=== PATIENT | male | born 1950 | race Caucasian/White ===

== ENCOUNTER 2018-01-23 14:42 | Outpatient (CLI) | payer MEDICARE ==
--- NOTE | 2018-01-23 15:53 | RAD ---
LUMBAR SPINE TWO VIEWS: HISTORY: A 67-year-old male with a history of lumbar stenosis and low back pain. FINDINGS: Postoperative changes are noted posteriorly at L3-L4 and at L4-L5. Extensive multilevel disk osteoph ytosis. Significant facet arthrosis. No evidence for acute fracture or significant malalignment. IMPRESSION: 1. Extensive spondylosis. 2. Dorsal postoperative changes at L3-L4 and L4-L5. POS: [facility]
== END 2018-01-23 14:43 | disposition home or self-care (01) ==
LOC: TBSIIMAG 14:42
PROVIDERS: ATTEND Surgery
DX: M48.061 Spinal stenosis, lumbar region without neurogenic claudication (principal); M47.896 Other spondylosis, lumbar region; Z98.890 Other specified postprocedural states
CPT/HCPCS: 72100

== ENCOUNTER 2018-03-09 06:18 | Inpatient (IN) | payer MEDICARE ==
[2018-03-08 13:08] VITALS: BMI 33.0
[2018-03-09] MEDS ORDERED: Thrombin 5000 UNITS/5 ML VIAL ONE (06:37)
[2018-03-09] MEDS ORDERED: Fentanyl 100 MCG/2 ML VIAL ONE ×2 (06:37→11:04)
[2018-03-09] MEDS ORDERED: Bacitracin Zinc Ointment 30 gm TUBE ONE (06:37)
[2018-03-09] MEDS ORDERED: Sodium Chloride 0.9% 10 ML ONE (06:37)
[2018-03-09 07:07] LABS: #Basophils 0.1 thou/uL (0.0-0.2); #Eosinphils 0.4 thou/uL (0.0-0.7); #Lymphocytes 1.8 thou/uL (1.20-3.40); #Monocytes 0.8 thou/uL (0.11-0.59); #Neutrophils 6.3 thou/uL (1.40-6.50); %Basophils 0.7 % (0.0-1.0); %Eosinophils 4.3 % (0.0-10.0); %Lymphocytes 19.3 % (21.0-51.0); %Monocytes 8.5 % (0.0-10.0); %Neutrophils 67.3 % (42.0-75.0); Hemoglobin 13.9 g/dL (14.0-18.0); Mean Corpuscular HGB CONC 33.3 g/dL (32.0-36.0); Mean Corpuscular Hemoglobin 29.7 pg (27.0-31.0); Mean Platelet Volume 7.8 fL (7.4-10.4); Platelet Count 176 thou/uL (130-400); RBC Distribution Width 12.2 % (11.5-14.5); Red Blood Cell (RBC) Count 4.67 mill/uL (4.70-6.10); White Blood Cell (WBC) Count 9.3 thou/uL (4.8-10.8)
[2018-03-09 07:28] LABS: Anion Gap 13 mmol/L (10-20); BUN (Urea Nitrogen) 39 mg/dL (8.4-25.7); Calc. Creatinine Clearance 98 mL/min (70-130); Calcium 9.3 mg/dL (7.8-10.44); Carbon Dioxide 17 mmol/L (23-31); Chloride 114 mmol/L (98-107); Estimated GFR-MDRD 64; Glucose 135 mg/dL (80-115); Potassium 4.4 mmol/L (3.5-5.1); Sodium 140 mmol/L (136-145)
[2018-03-09 07:29] LABS: PTT 30.8 SEC (22.9-36.1)
[2018-03-09] MEDS ORDERED: CEFAZOLIN/Water 2 GM/20 ML SYRINGE ONE (07:33)
[2018-03-09] MEDS ORDERED: Midazolam HCl 2 mg/2 ml Vial ONE (07:36)
[2018-03-09] MEDS ORDERED: HYDROmorphone 0.5 MG/0.5 ML SYRINGE ONE (10:38)
[2018-03-09] MEDS ORDERED: Acetaminophen/Codeine 30-300mg Tablet PO PRN (10:58)
[2018-03-09] MEDS ORDERED: Promethazine HCl 25 MG/ML VIAL IM PRN (10:58)
[2018-03-09] MEDS ORDERED: Fleet Enema 133 ML BOT PR PRN (10:58)
[2018-03-09] MEDS ORDERED: Acetaminophen 325 MG TAB PO PRN (10:58)
[2018-03-09] MEDS ORDERED: Milk Of Magnesia 30 ML UDCUP PO PRN (10:58)
[2018-03-09] MEDS ORDERED: Bisacodyl 10 MG SUPP PR PRN (10:58)
[2018-03-09] MEDS ORDERED: Mag-Al 1200 mg/1200 mg/30 ML UDCUP PO PRN (10:58)
--- NOTE | 2018-03-09 11:07 | OP ---
SURGEON: Jean Up M.D. SHARE HOLDER: Daljit Guzman PA-C. OR: 11. WOUND: Type 1 wound. PREPROCEDURE DIAGNOSES: Multilevel lumbar stenosis with history of L3-L4, L4-L5 X-STOP device placem ent in the past. POSTPROCEDURE DIAGNOSES: Multilevel lumbar stenosis with history of L3-L4, L4-L5 X-STOP device place ment in the past. PROCEDURES PERFORMED: 1. L2-L3, L3-L4, L4-L5 laminectomies, partial facetectomies and foraminotomies of the L2, L3, L4, L5 nerve roots bilaterally. 2. Removal of L3-L4 X-STOP device. 3. Removal of L4-L5 X-STOP device. DESCRIPTION OF PROCEDURE: After informed consent was obtained from the patient, the patient brought to OR 11. Proper patient pause and identification was carried out. He was placed in excellent gener al endotracheal anesthesia and positioned prone on the OR table. All appropriate points were padded. We identified the L2, L3, L4, L5 dorsal spines in the prior incision. This region was sterilely cl eansed, prepared, and draped. Proper patient pause and identification was carried out. The wound wa s then opened with a combination of sharp, monopolar and blunt dissection. The L2, L3, L4, L5 dorsal spines and lamina were exposed. The X-STOP devices were identified at L3-L4, L4-L5, and these were removed each separately. We had to work through scar tissue as expected in this region and then we p roceeded to expose the L2, L3, L4, L5 dorsal spines, lamina and portions of the facet capsules. Loca lization film confirmed our area of interest. We then performed L2, L3, L4, L5 laminectomies, partia l facetectomies and foraminotomies over the L2, L3, L4, L5 nerve roots and common dural tube. Hemost asis was maximized throughout. The wound was copiously irrigated and closed in anatomic layers follo wing the sprinkling of vancomycin powder. The patient then emerged from anesthesia.
[2018-03-09] MEDS ORDERED: Ondansetron HCl/PF 4 MG/2 ML Vial IVP PRN (12:31)
[2018-03-09] MEDS ORDERED: Morphine Sulfate 2 MG/ML SYRINGE SLOW IVP PRN (12:31)
[2018-03-09] MEDS: Sodium Chloride 0.9% 1,000 ML IV SCH (12:50)
[2018-03-09] MEDS: Morphine 4 MG/ML VIAL SLOW IVP PRN ×3 (13:54→21:34)
[2018-03-09] MEDS ORDERED: Ondansetron HCl/PF 4 MG/2 ML Vial IVP SCH (14:00)
[2018-03-09] MEDS: HYDROcodone/Acetaminophen 7.5/325 mg Tablet PO PRN ×2 (15:04→21:33)
[2018-03-09] MEDS: CEFAZOLIN/Water 2 GM/20 ML SYRINGE SLOW IVP SCH (15:05)
[2018-03-09] MEDS ORDERED: PROPOFOL 200 MG/20 ML VIAL ONE (15:07)
[2018-03-09] MEDS ORDERED: Ondansetron HCl/PF 4 MG/2 ML Vial ONE (15:07)
[2018-03-09] MEDS ORDERED: Esmolol 100 MG/10 ML VIAL ONE (15:07)
[2018-03-09] MEDS ORDERED: Lidocaine 1% PF 5 ML VIAL ONE (15:07)
[2018-03-09] MEDS ORDERED: ePHEDrine/0.9% NaCl/PF SYRINGE 50 mg/10 ml ONE (15:07)
[2018-03-09] MEDS ORDERED: Glycopyrrolate 0.2 MG/ML 5 ML SYRINGE ONE (15:07)
[2018-03-09] MEDS ORDERED: PHENYLEPHRINE-NS 100 MCG/ML 10 ML SYRINGE ONE (15:07)
[2018-03-09] MEDS: tiZANidine HCl 4 MG TAB PO PRN (17:50)
[2018-03-09] MEDS: traMADol HCl 50 MG TAB PO PRN (18:32)
[2018-03-09] MEDS: Simvastatin 40 MG TAB PO SCH (21:33)
[2018-03-10] MEDS: traMADol HCl 50 MG TAB PO PRN ×4 (00:16→21:29)
[2018-03-10] MEDS: Sodium Chloride 0.9% 1,000 ML IV SCH ×3 (00:16→23:52)
[2018-03-10] MEDS: CEFAZOLIN/Water 2 GM/20 ML SYRINGE SLOW IVP SCH (00:16)
[2018-03-10] MEDS: tiZANidine HCl 4 MG TAB PO PRN ×3 (06:57→21:29)
[2018-03-10] MEDS ORDERED: metFORMIN XR 500 MG TAB PO SCH (08:00)
[2018-03-10] MEDS: Valsartan 80 MG TAB PO SCH (08:48)
[2018-03-10] MEDS: Glimepiride 4 MG TAB PO SCH (08:48)
[2018-03-10] MEDS: Multivitamin W/ Minerals 1 TAB PO SCH (08:48)
[2018-03-10] MEDS: Morphine 4 MG/ML VIAL SLOW IVP PRN ×2 (09:51→18:55)
--- NOTE | 2018-03-10 09:52 | PRG ---
DATE OF SERVICE: 03/10/2018 Mr. Hull is doing well postoperative day 1 for multilevel lumbar decompression, removal of X-STOP devices. He has had resolution of his leg pain with good strength. We are working on mobilizing h im. He may restart his aspirin in 5 days and Plavix in 10.
[2018-03-10] MEDS: metFORMIN XR 500 MG TAB PO SCH (17:26)
[2018-03-10] MEDS: Simvastatin 40 MG TAB PO SCH (21:29)
[2018-03-11] MEDS: tiZANidine HCl 4 MG TAB PO PRN ×2 (05:18→11:38)
[2018-03-11] MEDS: HYDROcodone/Acetaminophen 7.5/325 mg Tablet PO PRN (05:18)
[2018-03-11 08:30] VITALS: BP 92/54; TEMP 97.9
[2018-03-11] MEDS: metFORMIN XR 500 MG TAB PO SCH (08:34)
[2018-03-11] MEDS: Multivitamin W/ Minerals 1 TAB PO SCH (08:34)
[2018-03-11] MEDS: Glimepiride 4 MG TAB PO SCH (08:34)
[2018-03-11] MEDS: Valsartan 80 MG TAB PO SCH (08:35)
[2018-03-11] MEDS: traMADol HCl 50 MG TAB PO PRN (11:38)
== END 2018-03-11 12:15 | disposition home or self-care (01) | DRG 519 ==
LOC: SURG A 06:18 → EDSTATUS 15:37
PROVIDERS: ADMIT Surgery; ATTEND Surgery
PROC: 00NY0ZZ Release Lumbar Spinal Cord, Open Approach (ICD-10-PCS; principal; 2018-03-09)
PROC: 01NB0ZZ Release Lumbar Nerve, Open Approach (ICD-10-PCS; 2018-03-09)
PROC: 0SP00JZ Removal of Synthetic Substitute from Lumbar Vertebral Joint, Open Approach (ICD-10-PCS; 2018-03-09)
DX: M48.062 Spinal stenosis, lumbar region with neurogenic claudication (principal); T84.89XA Other specified complication of internal orthopedic prosthetic devices, implants and grafts, initial encounter; M54.16 Radiculopathy, lumbar region; M48.061 Spinal stenosis, lumbar region without neurogenic claudication; Y83.1 Surgical operation with implant of artificial internal device as the cause of abnormal reaction of the patient, or of later complication, without mention of misadventure at the time of the procedure; Y92.9 Unspecified place or not applicable; I10 Essential (primary) hypertension; E78.5 Hyperlipidemia, unspecified; I25.10 Atherosclerotic heart disease of native coronary artery without angina pectoris; Z95.5 Presence of coronary angioplasty implant and graft; Z86.79 Personal history of other diseases of the circulatory system; Z83.3 Family history of diabetes mellitus; Z82.3 Family history of stroke; Z82.49 Family history of ischemic heart disease and other diseases of the circulatory system; Z79.899 Other long term (current) drug therapy; Z79.82 Long term (current) use of aspirin; Z79.02 Long term (current) use of antithrombotics/antiplatelets; E11.42 Type 2 diabetes mellitus with diabetic polyneuropathy; Z98.1 Arthrodesis status
CPT/HCPCS: 36415; 36416; 76001; 80048; 85025; 85610; 85730; 93005; 93010; A4216; J1170; J2001; J2250; J2270; J2405; J2550; J2704; J3010; J3370; J3490